=== PATIENT | female | born 1955 | race Caucasian/White ===

== ENCOUNTER → 2017-09-25 16:17 | Outpatient (CLI) | payer BC, SELFPAY ==
--- NOTE | 2017-09-25 16:19 | MM_ITS ---
MM Dig screening mamm BI w/CAD CAD Screening ORDERING PHYSICIAN : Ernesto Hernandez MD PATIENT AGE: 61 years GENDER: Female COMPARISON: Previous mammograms: 20 INDICATION: 61-year-old. No hormones.. No new complaints. Noncontributory family history. TECHNIQUE: Standard CC and MLO images were obtained. R2 CAD reviewed. FINDINGS: Minimal fibroglandular elements throughout central portion both breasts. No dominant mass nor suspicious calcifications. Prior films are helpful and supportive there is been no significant interval change Very Minor areas of nodularity bilaterally appear stable since studies dating back to 2012 and can be followed. IMPRESSION: stable bilateral mammogram with no significant new findings. Bilateral follow-up in one year recommended. BI-RADS Category: 1 Negative RECOMMENDED FOLLOW-UP: 1YR - 1 YEAR FOLLOW-UP (A letter has been sent to the patient regarding results of the study.)
== END ==
PROVIDERS: Family Provider Family Medicine; PCP Family Medicine; Visit Provider Nurse Practitioner Obstetrics & Gynecology
DX: Z12.31 Encounter for screening mammogram for malignant neoplasm of breast (principal)
CPT/HCPCS: 77067

== ENCOUNTER → 2018-10-12 16:51 | Outpatient (CLI) | payer BC, SELFPAY ==
--- NOTE | 2018-10-12 16:56 | MM_ITS ---
MM Dig screening mamm BI w/CAD CAD Screening COMPARISON: Digital mammograms with CAD 08/22/2016 and 09/25/2017 INDICATION: There is no personal or family history of breast cancer TECHNIQUE: Standard CC and MLO images were obtained. R2 CAD reviewed. FINDINGS: Diffuse fibroglandular densities are seen throughout both breasts. There is stable nodularity in the central portions of both breast compared with previous studies. There is no new or suspicious lesion in either breast and there are no suspicious microcalcifications. There are small nodes in both axilla. IMPRESSION: Moderate diffuse breast density with stable benign-appearing bilateral nodularity BI-RADS Category: 2 Benign Finding(s) RECOMMENDED FOLLOW-UP: 1YR - 1 YEAR FOLLOW-UP (A letter has been sent to the patient regarding results of the study.)
== END ==
PROVIDERS: PCP Family Medicine; Visit Provider Nurse Practitioner Obstetrics & Gynecology
DX: Z12.31 Encounter for screening mammogram for malignant neoplasm of breast (principal)
CPT/HCPCS: 77067

== ENCOUNTER 2020-09-10 11:41 | Emergency (ER) | payer MEDICARE, SELFPAY ==
[2020-09-10 11:45] VITALS: BP 130/71; PULSE 81; RESP 18; TEMP 36.3; O2SAT 97; BMI 28.2
--- NOTE | 2020-09-10 12:00 | HMH.EDUTC ---
[facility] [place] Clinical Impression: Exposure to COVID-19 virus Sinusitis Qualifiers: Sinusitis location: unspecified location Chronicity: unspecified Qualified Code(s): J32.9 - Chronic sinusitis, unspecified Disposition: Home, Self-Care Condition on Discharge: Good Instructions: Sinusitis, Sinus Headache, DI for Sinusitis, DI for COVID-19 (Suspected or Confirmed ), Coronavirus Disease 2019, Preventing the Spread of Coronavirus Discharge Instructions Additional Instructions: *Monitor Temp, Over the counter Motrin or Tylenol as directed/as needed Tylenol every 4 hours and Motrin every 6 hours (as long as your family doctor has told you that you can take it) for fever or pain. and straight to ER if unable to lower temp less than 101.0 after medication given *Warm salt water gargles may help to soothe the throat *Throat Lozenges *Warm fluids like tea with honey may help to soothe the throat *Sleep elevated *Humidifier/Vaporizer Follow up IMMEDIATELY for new or worsening symptoms or no Noticeable improvement over the next 48-72 hours. 911 for difficulty breathing or swallowing You were tested for today for COVID19 your test result should be back in the next 24-48 hours, you may call to the [facility] to see if your test results are back in the next 48 hours [phone] [facility] hours are 9am-9pm You was given a handout with instructions for Self Quarantine and Self isolation for while you wait on test results and what to do if they are positive If you are positive the Health Dept will be contacting you also Prescriptions: guaiFENesin [Mucinex 600mg tablet] 600 mg PO BID PRN #20 tab.er.12h PRN Reason: Congestion Transmission Status: Pending to [facility] Azithromycin [Z-Dedrick 250mg Tab] 250 mg PO DIRECTED #6 tab Transmission Status: Pending to [facility] Referrals: Ajit Benson MD [Primary Care Provider] - As needed Forms: Work/School Release Time of Disposition: 12:04 Medical Decision Making - Maury Inquiry Pt receiving controlled substance: No Maury was queried for this patient: No Vital Signs: 09/10/20 11:45 Temperature 97.4 F L Temperature Source Oral Pulse Rate [Right Brachial] 81 Respiratory Rate 18 Blood Pressure [Right Arm] 130/71 Blood Pressure Mean [Right Arm] 90 Blood Pressure Source [Right Arm] Automatic Cuff Blood Pressure Position [Right Arm] Sitting 02 Sat by Pulse Oximetry 97 Oxygen Delivery Method Room Air Orders (Tests/Meds): ORDERS Category Date Time Status Covid-19 Nasal PCR ([facility]) Routine Lab 09/10/20 11:56 Received Medical Decision Narrative: Patient reports that she has taken azithromycin and mucinex in the past without reactions or complications [facility] [place] - General Stated complaint: cov test Time Seen by Provider: 09/10/20 12:00 Mode of Arrival: Ambulatory Source of Information: Patient Limitations: No Limitations Description of Symptoms (Recalled from Triage Doc. by RN): COVID TEST D/T EXPOSURE. C/O COUGH, HEADACHE, AND DIARRHEA HEENT Symptoms (Recalled from RN notes): No Resp Symptoms (Recalled from RN notes): No Skin Symptoms (Recalled from RN notes): No MS Symptoms (Recalled from RN notes): No Functional Status (Recalled from RN notes): WNL - History of Present Illness Provider Complaint: Patient States that she was recently around several coworkers that tested positive for COVID States that she has been having sinus pain and pressure along with sinus headache cough and soft stools States that she feels like it is from the drainage but wanted to get checked and tested - Related Data Previous Rx's Medication Instructions Recorded Azithromycin [Z-Dedrick 250mg Tab] 250 mg PO DIRECTED #6 tab 09/10/20 guaiFENesin [Mucinex 600mg tablet] 600 mg PO BID PRN #20 tab.er.12h 09/10/20 Allergies Allergy/AdvReac Type Severity Reaction Status Date / Time Penicillins [PENICILLINS] Allergy Intermediate VOMITING Verified 03/23/19 15:02 - Wor
[2020-09-10 12:04] VITALS: BP 130/71; PULSE 81; RESP 18; TEMP 36.3; O2SAT 97
--- NOTE | 2020-09-10 17:03 | PC.NURSE ---
PT NOTIFIED OF POSITIVE COVID TEST RESULTS
== END 2020-09-10 12:09 | disposition home or self-care (01) ==
PROVIDERS: Emergency Provider Nurse Practitioner; PCP Family Medicine
DX: U07.1 COVID-19 (principal); J32.9 Chronic sinusitis, unspecified; Z88.0 Allergy status to penicillin
CPT/HCPCS: G0463; 99202; U0003